=== PATIENT | male | born 1945 | race Two or more races ===

== ENCOUNTER → 2016-03-07 | Outpatient (CLI) | payer MEDICARE, OTHER ==
[~2016-03-07] MED LIST: ENALAPRIL MALEA10 MG ORAL; MECLIZINE HCL25 MG ORAL; [UNRECOGNIZED DRUG - REMARK]
--- NOTE | 2016-03-14 14:56 | Diagnostic Imaging Report ---
Indications: Cough Technique: AP and lateral chest Findings: Comparison: 11/04/2015 Cardiac silhouette remains normal in size. Pulmonary vasculature remains within normal limits. Lungs and pleura remain clear. Mild calcification of the aortic arch, mild dextroscoliosis, disc margin osteophytes in the mid to lower thoracic spine are unchanged. IMPRESSION: No evidence of acute disease, unchanged Stable chronic changes as described
== END | disposition home or self-care (01) ==
LOC: RAD 09:49
DX: Z01.818 Encounter for other preprocedural examination (principal); R05 Cough
CPT/HCPCS: 71020

== ENCOUNTER → 2017-07-16 | Outpatient (CLI) | payer MEDICARE, OTHER ==
--- NOTE | 2017-07-16 15:28 | Diagnostic Imaging Report ---
Indication: Dyspnea Comparison: 03/07/2016 2 views of the chest obtained. The lungs appear hyperexpanded. The interstitium is more prominent on the current study but this may be technical. Correlate clinically. Heart size is normal. The lungs appear hyperexpanded. Osteophytes noted in the thoracic spine IMPRESSION: Suspicion of COPD. Prominent interstitial markings. Part of this may be technical in nature. Interstitial disease not excluded.
== END | disposition home or self-care (01) ==
LOC: RAD 14:15
DX: I10 Essential (primary) hypertension (principal); R06.00 Dyspnea, unspecified
CPT/HCPCS: 71046

== ENCOUNTER → 2018-06-14 | Outpatient (CLI) | payer MEDICARE, OTHER ==
--- NOTE | 2018-06-14 13:58 | Diagnostic Imaging Report ---
Indication: Dyspnea Comparison: 07/16/2017 Technique: PA and lateral views of the chest Heart size and mediastinal contours are within normal limits and stable compared to the prior exam. Atherosclerotic calcifications again noted in the aortic arch. Again there is mild hyperinflation. This raising question for COPD. There is no definite focal airspace consolidation. No pleural effusion or pneumothorax. There are degenerative changes in the spine without acute osseous abnormality. IMPRESSION: No focal airspace consolidation, pleural effusion or pneumothorax. Mild hyperinflation raising question for mild COPD changes.
== END | disposition home or self-care (01) ==
LOC: RAD 11:01
DX: R06.00 Dyspnea, unspecified (principal); I70.0 Atherosclerosis of aorta
CPT/HCPCS: 71046

== ENCOUNTER 2019-07-04 11:36 | Outpatient (CLI) | payer MEDICARE, OTHER ==
--- NOTE | 2019-07-04 17:53 | Diagnostic Imaging Report ---
Indication: Hypertension, chest pain Technique: 2 views of the chest Comparison: 06/14/2018 Findings: Lungs and pleural spaces are clear. The heart size is normal. There are degenerative changes of the thoracic spine. No significant interim change. Impression: Negative
== END 2019-07-04 13:36 | disposition home or self-care (01) ==
LOC: RAD 11:36
DX: I10 Essential (primary) hypertension (principal); R07.9 Chest pain, unspecified
CPT/HCPCS: 71046